=== PATIENT | female | born 1980 | race Caucasian/White ===

== ENCOUNTER 2016-11-03 11:22 | Outpatient (RCR) | payer BC ==
[~2016-11-03] VITALS: Ht 160 cm; Wt 45.8 kg
[2016-11-03 11:22] VITALS: BP 89/63
[~2016-11-03 11:22] MED LIST: D5 1/2 NS W/KCL 20 MEQ/L 1,000 ML IV SCH; Docusate Sodium PO; IBUP-1772 PO; LANO28OI TOP; PNV11TAB PO
--- NOTE | 2016-11-03 12:05 | NUR ---
ANOTHER WARM BLANKET GIVEN. CL
== END 2017-01-18 18:32 | disposition home or self-care (01) ==
LOC: EUOP 11:22
PROVIDERS: ATTEND Family Medicine
DX: E86.0 Dehydration (principal)
CPT/HCPCS: 36000; 96365

== ENCOUNTER → 2016-11-03 | Outpatient (REF) | payer BC | LOC: LAB 10:21 | PROVIDERS: ATTEND Family Medicine | DX: R19.7 Diarrhea, unspecified (principal) | CPT/HCPCS: 87507 ==